=== PATIENT | female | born 1985 | race Two or more races ===

== ENCOUNTER 2022-10-11 08:44 | Emergency (ER) | payer OTHER ==
[~2022-10-11] VITALS: Ht 149.9 cm; Wt 45.4 kg
[~2022-10-11 08:44] MED LIST: MOTRIN100 MG PO
== END 2022-10-11 10:46 | disposition home or self-care (01) ==
LOC: ER 08:44
DX: L29.8 Other pruritus (principal); T78.40XA Allergy, unspecified, initial encounter; Z91.013 Allergy to seafood

== ENCOUNTER 2024-10-11 18:36 | Emergency (ER) | payer OTHER ==
[~2024-10-11] VITALS: Ht 149.9 cm; Wt 49.9 kg
[2024-10-11] MEDS ORDERED: DICLOFENAC SODI75 MG PO (19:22)
[2024-10-11] MEDS ORDERED: NORFLEX100MG PO (19:22)
[2024-10-11] MEDS ORDERED: KETOROLAC TROMETHAMINE 60 MG VIAL IM ONE (19:30)
[2024-10-11] MEDS ORDERED: TRIAMCINOLONE ACETONIDE 40 MG/ML VIAL IM ONE (19:30)
[2024-10-11 20:41] VITALS: BP 133/78; O2SAT 98
== END 2024-10-11 20:43 | disposition home or self-care (01) ==
LOC: ER 18:53
DX: M54.2 Cervicalgia (principal); Z88.8 Allergy status to other drugs, medicaments and biological substances; Z91.013 Allergy to seafood